=== PATIENT | female | born 1940 | race Caucasian/White ===

== ENCOUNTER 2017-05-07 11:04 | Emergency (ER) | payer MEDICARE ==
[~2017-05-07] VITALS: Ht 162.6 cm; Wt 70.0 kg
[~2017-05-07 11:04] MED LIST: AMLO2.5T OR; BENI40TA31 PO; LEXA5TAB PO; METO50CR OR
[2017-05-07 11:07] VITALS: BP 139/99; PULSE 83; RESP 16; TEMP 98.4; O2SAT 96
[2017-05-07] MEDS ORDERED: SODIUM CHLORIDE 0.9% FLUSH 10 ML FLUSH IV FLUSH PRN (12:00)
[2017-05-07 12:27] LABS: BLOOD, URINE NEG (NEG); COMMENT (UR) CULT NOT INDICATED; CULTURE IF INDICATED CULT NOT INDICATED; GLUCOSE,URINE NEG (NEG); KETONE, URINE NEG (NEG); NITRITE,URINE NEG (NEG); SQUAMOUS EPITHELIAL CELL URINE <1 /hpf (0-5); TRANSITIONAL EPI CELLS, URINE <1 /hpf; URINE COLOR YELLOW (YELLW/STRAW)
[2017-05-07 12:28] LABS: BASOPHIL # 0.1 TH/MM3 (0-0.2); BASOPHIL % 1.2 % (0.0-2.0); EOSINOPHIL # 0.1 TH/MM3 (0-0.4); EOSINOPHIL % 1.5 % (0.0-4.0); HEMATOCRIT 36.4 % (35.0-46.0); HEMO FLAGS DIFF FINAL; LYMPH % 36.5 % (9.0-44.0); LYMPHOCYTE # 2.1 TH/MM3 (1.0-4.8); MEAN CORPUSCULAR HEMOGLOBIN 32.1 PG (27.0-34.0); MEAN CORPUSCULAR HGB CONC 34.1 % (32.0-36.0); MONO % 8.4 % (0.0-8.0); NEUT % 52.4 % (16.0-70.0); PLATELET COUNT 270 TH/MM3 (150-450); RED BLOOD COUNT 3.87 MIL/MM3 (4.00-5.30); RED CELL DISTRIBUTION WIDTH 13.1 % (11.6-17.2); WHITE BLOOD COUNT 5.8 TH/MM3 (4.0-11.0)
[2017-05-07] MEDS ORDERED: SODIUM CHLOR 0.9% 1000 ML INJ 1,000 ML IV SCH (12:32)
--- NOTE | 2017-05-07 12:33 | PD ---
HPI Chief Complaint: Abdominal Pain Time Seen by Provider: 12:19 Travel History International Travel<30 days: No Contact w/Intl Traveler<30days: No Traveled to known affect area: No History of Present Illness HPI 76-year-old female presents emergency Department with complaint of right upper quadrant abdominal pain has been intermittent for the past 5-6 months. Reports worsening and constant pain 3 days. Denies nausea, vomiting, fevers, dysuria. Reports intermittent loose stools and stools are normal at this time with last bowel movement this morning. Denies hematochezia, hematuria. Denies chest pain or shortness of breath. Denies cough or recent illness. Denies history of abdominal surgeries. Pain 8/10. Describes as dull pain. Has tried Rolaids and Aleve for symptom management. Pain is aggravated with deep breathing and coughing. Pain relieved sometimes after bowel movements. Reports EtOH daily 2-3 drinks. Primary care provider is Dr. Moses. Allergies to tetanus. History of hypertension. Has no other medical complaints. No other modifying factors or associated signs and symptoms. PFSH Past Medical History Arthritis: Yes Asthma: No Anxiety: Yes Depression: No Cancer: Yes (SKIN CA BASAL CELL) Cardiovascular Problems: Yes (HTN) High Cholesterol: Yes Chest Pain: No Congestive Heart Failure: No Diabetes: No Hiatal Hernia: No Hypertension: Yes Kidney Stones: No Radiation Therapy: No Renal Failure: No Seizures: No Sickle Cell Disease: No Thyroid Disease: No Past Surgical History Cardiac Surgery: No Social History Alcohol Use: Yes (2 drinks a day) Tobacco Use: No Substance Use: No Allergies-Medications (Allergen,Severity, Reaction): Coded Allergies: tetanus toxoid, adsorbed (Unverified Allergy, Mild, 05/07/17) Reported Meds & Prescriptions Reported Meds & Active Scripts Active Review of Systems Except as stated in HPI: all other systems reviewed are Neg Physical Exam Narrative GENERAL: Well-nourished, well-developed female patient, in no acute distress; afebrile; and toxic appearing SKIN: Warm and dry. HEAD: Atraumatic. Normocephalic. EYES: Pupils equal and round. No scleral icterus. No injection or drainage. ENT: Mucosa pink and moist. Airway patent. NECK: Trachea midline. CARDIOVASCULAR: Regular rate and rhythm. No murmur appreciated. RESPIRATORY: No accessory muscle use. Clear to auscultation. Breath sounds equal bilaterally. GASTROINTESTINAL: Abdomen soft, tenderness on palpation to lower quadrant, nondistended. Hepatic and splenic margins not palpable. Bowel sounds are active 4 quadrants. Nonrigid. No rebound tenderness. No guarding. BACK: No CVA tenderness. MUSCULOSKELETAL: No obvious deformities. No clubbing. No cyanosis. No edema. NEUROLOGICAL: Awake and alert. Oriented 3. No obvious cranial nerve deficits. Motor grossly within normal limits. Normal speech. PSYCHIATRIC: Appropriate mood and affect; insight and judgment normal. Data Data Last Documented VS Vital Signs Date Time Temp Pulse Resp B/P (MAP) Pulse Ox O2 Delivery O2 Flow Rate FiO2 05/07/17 14:35 18 05/07/17 12:45 64 138/81 (100) 99 Room Air 05/07/17 11:07 98.4 Orders Orders Complete Blood Count With Diff (05/07/17 11:53) Comprehensive Metabolic Panel (05/07/17 11:53) Lipase (05/07/17 11:53) Prothrombin Time / Inr (Pt) (05/07/17 11:53) Act Partial Throm Time (Ptt) (05/07/17 11:53) Urinalysis - C+S If Indicated (05/07/17 11:53) Sodium Chloride 0.9% Flush (Ns Flush) (05/07/17 12:00) Ct Abd/Pel W Iv Contrast(Rout) (05/07/17 12:32) Iv Access Insert/Monitor (05/07/17 12:32) Sodium Chlor 0.9% 1000 Ml Inj (Ns 1000 M (05/07/17 12:32) Acetaminophen (Tylenol) (05/07/17 13:15) Iohexol 350 Inj (Omnipaque 350 Inj) (05/07/17 14:08) Ed Discharge Order (05/07/17 14:59) Labs Laboratory Tests Test 05/07/17 12:00 05/07/17 12:05 White Blood Count 5.8 TH/MM3 Red Blood Count 3.87 MIL/MM3 Hemoglobin 12.4 GM/DL Hematocrit 36.4 % Mean Corpuscular Volume 94.0 FL Mean Corpuscular Hemoglobin 32.1 PG Mean Corpuscular Hemoglobin Concent 34.1 % Red Cell Distribution Width 13.1 % Platelet Count 270 TH/MM3 Mean Platelet Volume 7.3 FL Neutrophils (%) (Auto) 52.4 % Lymphocytes (%) (Auto) 36.5 % Monocytes (%) (Auto) 8.4 % Eosinophils (%) (Auto) 1.5 % Basophils (%) (Auto) 1.2 % Neutrophils # (Auto) 3.0 TH/MM3 Lymphocytes # (Auto) 2.1 TH/MM3 Monocytes # (Auto) 0.5 TH/MM3 Eosinophils # (Auto) 0.1 TH/MM3 Basophils # (Auto) 0.1 TH/MM3 CBC Comment DIFF FINAL Differential Comment Prothrombin Time 11.1 SEC Prothromb Time International Ratio 1.0 RATIO Activated Partial Thromboplast Time 27.0 SEC Blood Urea Nitrogen 16 MG/DL Creatinine 0.63 MG/DL Random Glucose 126 MG/DL Total Protein 6.7 GM/DL Albumin 3.8 GM/DL Calcium Level 9.3 MG/DL Alkaline Phosphatase 80 U/L Aspartate Amino Transf (AST/SGOT) 15 U/L Alanine Aminotransferase (ALT/SGPT) 22 U/L Total Bilirubin 0.5 MG/DL Sodium Level 130 MEQ/L Potassium Level 3.4 MEQ/L Chloride Level 98 MEQ/L Carbon Dioxide Level 24.4 MEQ/L Anion Gap 8 MEQ/L Estimat Glomerular Filtration Rate 92 ML/MIN Lipase 107 U/L Urine Color YELLOW Urine Turbidity CLEAR Urine pH 7.0 Urine Specific [place] 1.009 Urine Protein NEG mg/dL Urine Glucose (UA) NEG mg/dL Urine Ketones NEG mg/dL Urine Occult Blood NEG Urine Nitrite NEG Urine Bilirubin NEG Urine Urobilinogen LESS THAN 2.0 MG/DL Urine Leukocyte Esterase TRACE Urine RBC LESS THAN 1 /hpf Urine WBC 1 /hpf Urine Squamous Epithelial Cells <1 /hpf Urine Transitional Epithelial Cells <1 /hpf Microscopic Urinalysis Comment CULT NOT INDICATED MDM Medical Decision Making Medical Screen Exam Complete: Yes Emergency Medical Condition: Yes Medical Record Reviewed: Yes Differential Diagnosis Appendicitis, kidney stone, pyelonephritis Narrative Course 76-year-old female with right lower quadrant abdominal pain on exam. IV site was established. CBC, CMP, lipase, urinalysis, fluid bolus, CT abdomen/pelvis ordered. I offered patient pain medication and she declined. 1304: CBC unremarkable. Sodium 130. Coags unremarkable. Urinalysis without signs of infection. 1450: CT abdomen/pelvis concludes: No acute finding is identified in the abdomen or pelvis to explain the clinical symptoms. 2. Nonacute findings include mild atherosclerotic disease and calcified uterine fibroid measuring 2.[address] findings discussed with the patient. Patient provided a copy of the CT report. Discussed with Dr. Cesar and he agrees to discharge. Instructed patient to follow up with gastroenterology. Instructed patient to follow up with primary care provider. Patient verbalizes understanding and agreement with treatment plan. Patient is medically cleared and stable for discharge. Discussed reasons to return to the emergency department. Patient agrees with treatment plan. The patients vital signs are stable and the patient is stable for outpatient follow-up and treatment. Patient discharged home, stable and in no acute distress. Diagnosis Primary Impression: Abdominal pain Qualified Codes: R10.9 - Unspecified abdominal pain Referrals: High Tension Tester Primary Care Physician Patient Instructions: Abdominal Pain (ED), General Instructions Additional Instructions: Follow-up with gastrologist Follow-up with primary care provider Return to the emergency department immediately with worsening of symptoms Med/Other Pt SpecificInfo: No Change to Meds, No Meds Exist/No RX given Disposition: 01 DISCHARGE HOME Condition: Stable Damari Benitez May 07, 2017 12:33
[2017-05-07 12:34] LABS: PROTHROMBIN TIME - PATIENT 11.1 SEC (9.8-11.6)
[2017-05-07 12:45] VITALS: BP 138/81; PULSE 64; RESP 18; O2SAT 99
[2017-05-07 12:46] LABS: ANION GAP 8 MEQ/L (5-15); AST (GOT) 15 U/L (15-37); BICARBONATE 24.4 MEQ/L (21.0-32.0); BLOOD UREA NITROGEN 16 MG/DL (7-18); CHLORIDE 98 MEQ/L (98-107); GLOMERULAR FILTRATION RATE 92 ML/MIN (>89); POTASSIUM 3.4 MEQ/L (3.5-5.1); SODIUM (NA) 130 MEQ/L (136-145)
[2017-05-07 12:48] LABS: ALKALINE PHOSPHATASE 80 U/L (45-117); ALT (GPT) 22 U/L (10-53); TOTAL BILIRUBIN ADULT 0.5 MG/DL (0.2-1.0)
[2017-05-07] MEDS ORDERED: ACETAMINOPHEN 325 MG TAB PO ONE (13:15)
[2017-05-07] MEDS ORDERED: IOHEXOL 350 MG/ML 10 ML VIAL (for RAD DIAG) IVCONTRAST ONE (14:08)
[2017-05-07 14:35] VITALS: RESP 18
--- NOTE | 2017-05-07 14:44 | RADRPT ---
EXAM DATE/TIME: 05/07/2017 13:59 [facility] COMPARISON: No previous studies available for comparison. INDICATIONS : Right upper quadrant pain for 5-6 months IV CONTRAST: 93 cc Omnipaque 350 (iohexol) IV ORAL CONTRAST: No oral contrast ingested. RADIATION DOSE: 7.61 CTDIvol (mGy) MEDICAL HISTORY : Cardiovascular disease. Hypertension. SURGICAL HISTORY : None. ENCOUNTER: Initial ACUITY: 4 - 6 months PAIN SCALE: 6/10 LOCATION: Right upper quadrant TECHNIQUE: Volumetric scanning of the abdomen and pelvis was performed. Using automated exposure control and ad justment of the mA and/or kV according to patient size, radiation dose was kept as low as reasonably achievable to obtain optimal diagnostic quality images. DICOM format image data is available electro nically for review and comparison. FINDINGS: LOWER LUNGS: The visualized lower lungs are clear. LIVER: Homogeneous density without lesion. There is no dilation of the biliary tree. No calcified gallston es. SPLEEN: Normal size without lesion. PANCREAS: Within normal limits. KIDNEYS: Normal in size and shape. There is no mass, stone or hydronephrosis. ADRENAL GLANDS: Within normal limits. VASCULAR: There is no aortic aneurysm. There is mild atherosclerotic disease. BOWEL/MESENTERY: The stomach, small bowel, and colon demonstrate no acute abnormality. A small hiatal hernia is prese nt. There is no free intraperitoneal air or fluid. Terminal ileum is normal. ABDOMINAL WALL: Within normal limits. RETROPERITONEUM: There is no lymphadenopathy. BLADDER: No wall thickening or mass. REPRODUCTIVE: Uterus contains calcified masses with the largest in the left fundus measuring 2.5 cm. INGUINAL: There is no lymphadenopathy or hernia. MUSCULOSKELETAL: There are degenerative changes of the lumbar spine with mild levoscoliosis. CONCLUSION: 1. No acute finding is identified in the abdomen or pelvis to explain the clinical symptoms. 2. Nonacute findings include mild atherosclerotic disease and calcified uterine fibroid measuring 2.5 cm. Edd Ibrahim MD on May 07, 2017 at 14:38 Board Certified Radiologist. This report was verified electronically.
[2017-05-07 15:23] VITALS: BP 128/78
== END 2017-05-07 15:35 | disposition home or self-care (01) ==
LOC: NEPD 11:04
DX: R10.31 Right lower quadrant pain (principal); D25.9 Leiomyoma of uterus, unspecified; I10 Essential (primary) hypertension; M19.90 Unspecified osteoarthritis, unspecified site; F41.9 Anxiety disorder, unspecified; E78.00 Pure hypercholesterolemia, unspecified
CPT/HCPCS: 74177; 80053; 81001; 83690; 85025; 85610; 85730; 99285; J7030; Q9967